=== PATIENT | male | born 1980 | race African-American/Black ===

== ENCOUNTER 2016-09-03 07:40 | Emergency (ER) | payer OTHER ==
[2016-09-03 08:18] LABS: APPEARANCE CLEAR (CLEAR); BILIRUBIN 1+ (NEGATIVE); COLOR YELLOW (YELLOW); GLUCOSE NEGATIVE (NEGATIVE); KETONE NEGATIVE (NEGATIVE); LEUKOCYTE ESTERASE NEGATIVE (NEGATIVE); NITRITE NEGATIVE (NEGATIVE); PROTEIN NEGATIVE (NEGATIVE); UROBILINOGEN NORMAL (NORMAL)
== END 2016-09-03 08:33 | disposition home or self-care (01) ==
LOC: D.ER 07:40
PROVIDERS: Emergency Medicine
DX: K40.90 Unilateral inguinal hernia, without obstruction or gangrene, not specified as recurrent (principal); Z29.8 Encounter for other specified prophylactic measures; F17.200 Nicotine dependence, unspecified, uncomplicated